=== PATIENT | female | born 1965 ===

== ENCOUNTER 2019-01-20 13:48 | Day surgery (SDC) | payer OTHER ==
[2019-01-20] MEDS ORDERED: Depo-Medrol 40 MG/ML IM ONE (13:49)
[2019-01-20] MEDS ORDERED: Xylocaine-Mpf 2% 5 Ml Vial IJ ONE (13:49)
[2019-01-20] MEDS ORDERED: Lactated Ringers 1,000 ML IV ONE (14:33)
[2019-01-20] MEDS ORDERED: Ketamine HCl 50 MG/ML ONE ×2 (14:42→15:01)
[2019-01-20] MEDS ORDERED: DIPRIVAN 200 MG/20 ML IV ONE (14:42)
--- NOTE | 2019-01-20 16:16 | XRAY ---
Indication: Bilateral L3-L5 MBB. Intraoperative fluoroscopy was provided for 13 seconds. Single digital spot images submitted for interpretation demonstrates posterior needle tips projecting over the expected course of the left and right L3-L5 nerve roots. Correlate with intraoperative findings/report.
--- NOTE | 2019-01-20 16:19 | XRAY ---
13 seconds of fluoroscopy was used in surgery for bilateral L3-L4 and L4-L5 MBB.
== END 2019-01-20 15:21 | disposition home or self-care (01) ==
LOC: SDC-PAIN 13:48
PROVIDERS: ATTEND Psychiatry & Neurology Pain Medicine
DX: M47.816 Spondylosis without myelopathy or radiculopathy, lumbar region (principal); M06.9 Rheumatoid arthritis, unspecified; I48.91 Unspecified atrial fibrillation
CPT/HCPCS: 64493; 64494; 72020; 77002; 84703; J1030; J2704

== ENCOUNTER 2019-06-30 12:28 | Day surgery (SDC) | payer OTHER ==
[2019-06-30] MEDS ORDERED: Depo-Medrol 40 MG/ML IM ONE (12:29)
[2019-06-30] MEDS ORDERED: Marcaine 0.5% SDV 10 ML IJ ONE (12:29)
[2019-06-30] MEDS ORDERED: Ketamine HCl 50 MG/ML ONE (13:41)
[2019-06-30] MEDS ORDERED: DIPRIVAN 200 MG/20 ML IV ONE (13:41)
[2019-06-30] MEDS ORDERED: Lactated Ringers 1,000 ML IV ONE (14:29)
--- NOTE | 2019-06-30 14:46 | XRAY ---
11 seconds fluoroscopy time in surgery for bilateral L3-L5 MBB.
--- NOTE | 2019-06-30 14:46 | XRAY ---
Indication: Bilateral L3-L5 MBB. Intraoperative fluoroscopy was provided for 11 seconds. Single digital spot image submitted for interpretation demonstrates posterior needle tips projecting over the expected course of the left and right L3-L5 nerve roots. Correlate with intraoperative findings/report.
== END 2019-06-30 14:05 | disposition home or self-care (01) ==
LOC: SDC-PAIN 12:28
PROVIDERS: ATTEND Psychiatry & Neurology Pain Medicine
DX: M47.816 Spondylosis without myelopathy or radiculopathy, lumbar region (principal); M06.9 Rheumatoid arthritis, unspecified; I48.91 Unspecified atrial fibrillation; Z79.899 Other long term (current) drug therapy
CPT/HCPCS: 64494; 64495; 72020; 77002; 84703; J1030; J2704

== ENCOUNTER 2020-01-26 11:27 | Day surgery (SDC) | payer OTHER ==
[~2020-01-26 11:27] MED LIST: DIPRIVAN 200 MG/20 ML IV ONE; Ketamine HCl 50 MG/ML ONE
[2020-01-26] MEDS ORDERED: Marcaine 0.5% SDV 10 ML IJ ONE (11:28)
[2020-01-26] MEDS ORDERED: Depo-Medrol 40 MG/ML IM ONE (11:28)
--- NOTE | 2020-01-26 14:18 | XRAY ---
Indication: Left SI joint injection. Intraoperative fluoroscopy was provided for 12 seconds. 2 digital spot images submitted for interpretation demonstrates posterior needle tip projecting over the inferior left SI joint. Correlate with intraoperative findings/report.
--- NOTE | 2020-01-26 14:32 | XRAY ---
Indication: Right bursa injection. Intraoperative fluoroscopy was provided for 8 seconds. Single digital spot image obtained prone demonstrates needle tip just lateral to the right greater trochanter. Small amount of contrast injected for needle tip placement. Correlate with intraoperative findings/report.
--- NOTE | 2020-01-26 15:34 | XRAY ---
Indication: Left bursa injection. Intraoperative fluoroscopy was provided for 11 seconds. Single digital spot image obtained prone demonstrates needle tip just lateral to the left greater trochanter. Small amount of contrast injected for needle tip placement. Correlate with intraoperative findings/report.
[2020-01-26] MEDS ORDERED: Lactated Ringers 1,000 ML IV ONE (16:36)
--- NOTE | 2020-01-26 16:38 | XRAY ---
11 seconds fluoroscopy time in surgery for left hip bursa injection.
--- NOTE | 2020-01-26 16:38 | XRAY ---
8 seconds fluoroscopy time in surgery for right hip bursa injection.
--- NOTE | 2020-01-26 16:38 | XRAY ---
12 seconds fluoroscopy time in surgery for left SI joint injection.
== END 2020-01-26 13:15 | disposition home or self-care (01) ==
LOC: SDC-PAIN 11:27
PROVIDERS: ATTEND Psychiatry & Neurology Pain Medicine
DX: M46.1 Sacroiliitis, not elsewhere classified (principal); M70.62 Trochanteric bursitis, left hip; M70.61 Trochanteric bursitis, right hip; M06.9 Rheumatoid arthritis, unspecified; I48.91 Unspecified atrial fibrillation; Z79.899 Other long term (current) drug therapy
CPT/HCPCS: 20610; 72020; 73501; 77002; 84703; G0260; 27096; J1030; J2704; Q9966

== ENCOUNTER 2020-11-29 13:30 | Day surgery (SDC) | payer OTHER ==
[2020-11-29] MEDS ORDERED: Lactated Ringers 1,000 ML IV ONE (16:06)
== END 2020-11-29 14:36 | disposition home or self-care (01) ==
LOC: SDC-PAIN 13:30
PROVIDERS: ATTEND Psychiatry & Neurology Pain Medicine
DX: Z53.09 Procedure and treatment not carried out because of other contraindication (principal)
CPT/HCPCS: 84703

== ENCOUNTER 2020-11-29 14:41 | Emergency (ER) | payer OTHER ==
[2020-11-29 15:51] LABS: Absolute Neutrophil Ct (ANC) 1.76 (1.4-6.9); BASOPHIL % 0.4 % (0.0-0.4); Basophil (Absolute #) 0.02 (0-0.4); Eosinophil % 3.5 % (0.00-5.0); Eosinophil (Absolute #) 0.17 (0-0.5); Hematocrit 39.2 % (35-47); Hemoglobin 12.5 gm/dl (12.0-16.0); Lymphocyte (Absolute #) 2.49 (1.0-4.6); Lymphocytes % 51.6 % (24.0-44.0); Mean Cell Volume 90.5 fl (78-100); Mean Corpuscular Hemoglobin 28.9 pg (26-32); Mean Corpuscular Hgb Concent. 31.9 g/dl (32-36); Mean Platelet Volume 11.5 fl (7.5-11.0); Monocyte (Absolute #) 0.39 (0.0-1.3); Monocytes % 8.1 % (0.0-12.0); Neutrophil % 36.4 % (36.0-66.0); Platelet Count 162 K/mm3 (150-450); Red Blood Count 4.33 M/mm3 (4.1-5.4); Red Cell Distribution Width 13.1 % (11.5-14.0); White Blood Count 4.8 K/mm3 (4.0-10.5)
[2020-11-29 16:13] LABS: ALBUMIN 4.2 g/dL (3.5-5.0); ALKALINE PHOSPHATASE 65 U/L (38-126); ANION GAP 11.1 MEQ/L (5-15); BLOOD UREA NITROGEN 10 mg/dL (7-17); CHLORIDE 105 mmol/L (98-107); Calcium 9.5 mg/dL (8.4-10.2); Carbon Dioxide 26 mmol/L (22-30); Creatinine 1 0.43 mg/dL (0.52-1.04); EST GLOMERULAR FILTRATION RATE > 60.0 ML/MIN; Glucose 96 mg/dL (74-106); MAGNESIUM 1.7 mg/dL (1.6-2.3); NT PRO BNP 45.3 pg/mL (0-900); SGOT/AST 72 U/L (14-36); SGPT/ALT 81 U/L (0-35); SODIUM 138 mmol/L (137-145); Total Protein 7.7 g/dL (6.3-8.2)
--- NOTE | 2020-11-29 16:19 | XRAY ---
Indication: Left chest pain. Comparison: None Portable chest demonstrates normal heart, lungs, and bony thorax.
[2020-11-29 17:04] LABS: Appearance CLEAR (CLEAR); Bilirubin NEGATIVE (NEGATIVE); Blood NEGATIVE Ery/ul (0-5); Glucose NEGATIVE (NEGATIVE); Ketones NEGATIVE (NEGATIVE); Leukocyte Esterase NEGATIVE (NEGATIVE); Mucus SLIGHT /HPF (NEGATIVE); Nitrite NEGATIVE (NEGATIVE); Protein,Urine Dip NEGATIVE (Negative); Specific Gravity 1.023 (1.005-1.025); Urobilinogen NEGATIVE mg/dL (0-1); WBC 0-2 /HPF (0-5)
--- NOTE | 2020-11-29 17:47 | ERPHSYRPT ---
- History of Present Illness Patient Subjective Stated Complaint: Pt states that for the past week she has had chest pain off and on and today she was going to get an injection for her chronic back pain when she had an episode of chest pain, pt sees Dr. Jacob for A-fib Triage Nursing Assessment: Pt brought over to the ER by out patient surgery due to having chest pain, pt was unable to get her injections, vitals wnl, rates pain during episodes as 8/10, pulses normal, skin n/w/d, doesn't appear to be in any distress Allergies/Adverse Reactions: Penicillins Allergy (Verified 11/29/20 15:01) Home Medications: Cyclobenzaprine HCl 10 mg [Cyclobenzaprine 10 MG] 10 mg PO DAILY 11/29/20 [History] Hydrocodone Bit/Acetaminophen [Hydrocodon-Acetaminophn 10-325] 1 tab PO BID 11/29/20 [History] Levothyroxine Sodium [Synthroid] 175 mcg PO DAILY 11/29/20 [History] Loratadine 10 mg [Claritin 10 mg] 10 mg PO DAILY 11/29/20 [History] Metoprolol Tartrate 50 mg [Lopressor 50 MG] 50 mg PO BID 11/29/20 [History] Montelukast Sodium 10 mg [Singulair 10 MG] 10 mg PO DAILY 11/29/20 [History] Pravastatin Sodium 20 mg PO DAILY 11/29/20 [History] Verapamil HCl [Verapamil ER] 120 mg PO DAILY 11/29/20 [History] Zolpidem Tartrate 5 mg [Ambien 5 MG Tablet] 5 mg PO DAILY 11/29/20 [History] lisinopriL [Zestril] 2.5 mg PO DAILY 11/29/20 [History] Travel Risk - International Travel Have you traveled outside of the country in past 3 weeks: No - Coronavirus Screening Are you exhibiting any of the following symptoms?: No Close contact with a COVID-19 positive Pt in past 14-21 Days: No - Vaccine Status Have you recieved a Covid-19 vaccination: Yes [employer]: [employer] - Vaccination Dates Date of 2cond Vaccination (if applicable): 11/24/2020 - Past Medical History Pertinent Past Medical History: Yes Cardiac History: Arrhythmia Endocrine Medical History: Hypothyroidism Musculoskeletal History: Arthritis, Rheumatoid Arthritis - Past Surgical History Past Surgical History: Yes Female Surgical History: Section, Tubal Ligation Other Surgical History: ablasion, 3 deviated septums with reconstruction surgery, plantar fasciatis on hiwot feet - Social History Smoking Status: Former smoker Exposure to second hand smoke: No Drug Use: none Patient Lives Alone: No - Female History Hx Now: No - Nursing Vital Signs Nursing Vital Signs: Initial Vital Signs Temperature 98.2 F 11/29/20 14:42 Pulse Rate 68 11/29/20 14:42 Respiratory Rate 17 11/29/20 14:42 Blood Pressure 140/80 11/29/20 14:42 O2 Sat by Pulse Oximetry 96 11/29/20 14:42 Pain Scale Pain Intensity 0 - Physical Exam SpO2: 94 Ordered Tests: Active Orders 24 hr Category Date Time Status Hvac Field Service Technician STAT Care 11/29/20 15:05 Active EKG-ER Only STAT Care 11/29/20 15:04 Active IV Insertion STAT Care 11/29/20 15:04 Active Pulse Oximetry (ED) STAT Care 11/29/20 15:04 Active CHEST 1 VIEW (PORTABLE) Stat Exams 11/29/20 15:05 Completed CBC W DIFF Stat Lab 11/29/20 15:45 Completed CMP Stat Lab 11/29/20 15:45 Completed MAGNESIUM Stat Lab 11/29/20 15:45 Completed NT PRO BNP Stat Lab 11/29/20 15:45 Completed TROPONIN Q3H Lab 11/29/20 15:45 Completed TROPONIN Q3H Lab 11/29/20 18:15 Ordered TROPONIN Q3H Lab 11/29/20 21:15 Ordered TROPONIN Q3H Lab 11/30/20 00:15 Ordered TROPONIN Q3H Lab 11/30/20 03:15 Ordered UA W/RFX UR CULTURE Stat Lab 11/29/20 16:33 Completed Lab/Rad Data: Laboratory Result Diagrams 11/29/20 15:45 11/29/20 15:45 Laboratory Results 11/29/20 11/29/20 11/29/20 Range/Units 16:33 15:45 15:45 WBC (4.0-10.5) K/mm3 RBC (4.1-5.4) M/mm3 Hgb (12.0-16.0) gm/dl Hct (35-47) % MCV (78-100) fl MCH (26-32) pg MCHC (32-36) g/dl RDW (11.5-14.0) % Plt Count (150-450) K/mm3 MPV (7.5-11.0) fl Gran % (36.0-66.0) % Eos # (Auto) (0-0.5) Absolute Lymphs (auto) (1.0-4.6) Absolute Monos (auto) (0.0-1.3) Lymphocytes % (24.0-44.0) % Monocytes % (0.0-12.0) % Eosinophils % (0.00-5.0) % Basophils % (0.0-0.4) % Absolute Granulocytes (1.4-6.9) Basophils # (0-0.4) Sodium 138 (137-145) mmol/L Potassium 4.0 (3.5-5.1) mmol/L Chloride 105 (98-107) mmol/L Carbon Dioxide 26 (22-30) mmol/L Anion Gap 11.1 (5-15) MEQ/L BUN 10 (7-17) mg/dL Creatinine 0.43 L (0.52-1.04) mg/dL Estimated GFR > 60.0 ML/MIN Glucose 96 (74-106) mg/dL Calcium 9.5 (8.4-10.2) mg/dL Magnesium 1.7 (1.6-2.3) mg/dL Total Bilirubin 0.60 (0.2-1.3) mg/dL AST 72 H (14-36) U/L ALT 81 H (0-35) U/L Alkaline Phosphatase 65 (38-126) U/L Troponin I < 0.012 (0.000-0.034) ng/mL NT-Pro-B Natriuret Pep 45.3 (0-900) pg/mL Serum Total Protein 7.7 (6.3-8.2) g/dL Albumin 4.2 (3.5-5.0) g/dL Urine Color YELLOW (YELLOW) Urine Appearance CLEAR (CLEAR) Urine pH 5.0 (5-6) Ur Specific Universal 1.023 (1.005-1.025) Urine Protein NEGATIVE (Negative) Urine Ketones NEGATIVE (NEGATIVE) Urine Blood NEGATIVE (0-5) Barney/ul Urine Nitrite NEGATIVE (NEGATIVE) Urine Bilirubin NEGATIVE (NEGATIVE) Urine Urobilinogen NEGATIVE (0-1) mg/dL Ur Leukocyte Esterase NEGATIVE (NEGATIVE) Urine WBC (Auto) 0-2 (0-5) /HPF Urine RBC (Auto) NONE (0-2) /HPF U Epithel Cells (Auto) NONE (FEW) /HPF Urine Bacteria (Auto) NONE (NEGATIVE) /HPF Urine Mucus (Auto) SLIGHT (NEGATIVE) /HPF Urine Culture Reflexed NO (NO) Urine Glucose NEGATIVE (NEGATIVE) mg/dL 11/29/20 Range/Units 15:45 WBC 4.8 (4.0-10.5) K/mm3 RBC 4.33 (4.1-5.4) M/mm3 Hgb 12.5 (12.0-16.0) gm/dl Hct 39.2 (35-47) % MCV 90.5 (78-100) fl MCH 28.9 (26-32) pg MCHC 31.9 L (32-36) g/dl RDW 13.1 (11.5-14.0) % Plt Count 162 (150-450) K/mm3 MPV 11.5 H (7.5-11.0) fl Gran % 36.4 (36.0-66.0) % Eos # (Auto) 0.17 (0-0.5) Absolute Lymphs (auto) 2.49 (1.0-4.6) Absolute Monos (auto) 0.39 (0.0-1.3) Lymphocytes % 51.6 H (24.0-44.0) % Monocytes % 8.1 (0.0-12.0) % Eosinophils % 3.5 (0.00-5.0) % Basophils % 0.4 (0.0-0.4) % Absolute Granulocytes 1.76 (1.4-6.9) Basophils # 0.02 (0-0.4) Sodium (137-145) mmol/L Potassium (3.5-5.1) mmol/L Chloride (98-107) mmol/L Carbon Dioxide (22-30) mmol/L Anion Gap (5-15) MEQ/L BUN (7-17) mg/dL Creatinine (0.52-1.04) mg/dL Estimated GFR ML/MIN Glucose (74-106) mg/dL Calcium (8.4-10.2) mg/dL Magnesium (1.6-2.3) mg/dL Total Bilirubin (0.2-1.3) mg/dL AST (14-36) U/L ALT (0-35) U/L Alkaline Phosphatase (38-126) U/L Troponin I (0.000-0.034) ng/mL NT-Pro-B Natriuret Pep (0-900) pg/mL Serum Total Protein (6.3-8.2) g/dL Albumin (3.5-5.0) g/dL Urine Color (YELLOW) Urine Appearance (CLEAR) Urine pH (5-6) Ur Specific Universal (1.005-1.025) Urine Protein (Negative) Urine Ketones (NEGATIVE) Urine Blood (0-5) Barney/ul Urine Nitrite (NEGATIVE) Urine Bilirubin (NEGATIVE) Urine Urobilinogen (0-1) mg/dL Ur Leukocyte Esterase (NEGATIVE) Urine WBC (Auto) (0-5) /HPF Urine RBC (Auto) (0-2) /HPF U Epithel Cells (Auto) (FEW) /HPF Urine Bacteria (Auto) (NEGATIVE) /HPF Urine Mucus (Auto) (NEGATIVE) /HPF Urine Culture Reflexed (NO) Urine Glucose (NEGATIVE) mg/dL - Departure Referrals: KEVIN ADKINS [Primary Care Provider] -
--- NOTE | 2020-11-29 17:48 | ERPHSYRPT ---
- History of Present Illness Time Seen by Provider: 11/29/20 14:55 Historian: patient Exam Limitations: no limitations Patient Subjective Stated Complaint: Pt states that for the past week she has had chest pain off and on and today she was going to get an injection for her chronic back pain when she had an episode of chest pain, pt sees Dr. Jacob for A-fib Triage Nursing Assessment: Pt brought over to the ER by out patient surgery due to having chest pain, pt was unable to get her injections, vitals wnl, rates pain during episodes as 8/10, pulses normal, skin n/w/d, doesn't appear to be in any distress Physician History: Patient is a 55-year-old female presents to our ED for evaluation of chest pain. Patient was in the process of getting a regional block for back pain when she advised staff that she was experiencing chest pain. Patient states that she has been experiencing intermittent chest pain for approximately 3 weeks. Patient had another episode just prior to arrival while in preop holding area. Pain described as an ache that is at her left chest. Tends to radiate to her neck. No associated nausea vomiting or diaphoresis. Symptoms are mild to moderate in intensity. No specific worsening improving factors. Patient has history of hypercholesterolemia. She is currently not taking any medication for hypercholesterolemia. Patient's last cardiac stress test about 5 years ago. Patient's BMI is greater than 40. at bedside. They voiced no other complaints or concerns at this time. Timing/Duration: today Activities at Onset: none Location: substernal Chest Pain Radiation: neck Severity of Pain-Max: moderate Severity of Pain-Current: mild Modifying Factors: Improves With: nothing Associated Symptoms: denies symptoms Prior Chest Pain/Cardiac Workup: no prior chest pain Nitro Today/Relief: no nitro taken today Aspirin Treatment Today: no aspirin today Allergies/Adverse Reactions: Penicillins Allergy (Verified 11/29/20 15:01) Home Medications: Cyclobenzaprine HCl 10 mg [Cyclobenzaprine 10 MG] 10 mg PO DAILY 11/29/20 [History] Hydrocodone Bit/Acetaminophen [Hydrocodon-Acetaminophn 10-325] 1 tab PO BID 11/29/20 [History] Levothyroxine Sodium [Synthroid] 175 mcg PO DAILY 11/29/20 [History] Loratadine 10 mg [Claritin 10 mg] 10 mg PO DAILY 11/29/20 [History] Metoprolol Tartrate 50 mg [Lopressor 50 MG] 50 mg PO BID 11/29/20 [History] Montelukast Sodium 10 mg [Singulair 10 MG] 10 mg PO DAILY 11/29/20 [History] Pravastatin Sodium 20 mg PO DAILY 11/29/20 [History] Verapamil HCl [Verapamil ER] 120 mg PO DAILY 11/29/20 [History] Zolpidem Tartrate 5 mg [Ambien 5 MG Tablet] 5 mg PO DAILY 11/29/20 [History] lisinopriL [Zestril] 2.5 mg PO DAILY 11/29/20 [History] Travel Risk - International Travel Have you traveled outside of the country in past 3 weeks: No - Coronavirus Screening Are you exhibiting any of the following symptoms?: No Close contact with a COVID-19 positive Pt in past 14-21 Days: No - Vaccine Status Have you recieved a Covid-19 vaccination: Yes [employer]: [employer] - Vaccination Dates Date of 2cond Vaccination (if applicable): 11/24/2020 - Review of Systems Constitutional: No Symptoms, No Fever, No Chills Eyes: No Symptoms Ears, Nose, & Throat: No Symptoms Respiratory: No Symptoms, No Cough, No Dyspnea Cardiac: No Symptoms, No Chest Pain, No Edema, No Syncope Abdominal/Gastrointestinal: No Symptoms, No Abdominal Pain, No Nausea, No Vomiting, No Diarrhea Genitourinary Symptoms: No Symptoms, No Dysuria Musculoskeletal: No Symptoms, No Back Pain, No Neck Pain Skin: No Symptoms, No Rash Neurological: No Symptoms, No Dizziness, No Focal Weakness, No Sensory Changes Psychological: No Symptoms Endocrine: No Symptoms Hematologic/Lymphatic: No Symptoms Immunological/Allergic: No Symptoms All Other Systems: Reviewed and Negative - Past Medical History Pertinent Past Medical History: Yes Cardiac History: Arrhythmia Endocrine Medical History: Hypothyroidism Musculoskeletal History: Arthritis, Rheumatoid Arthritis - Past Surgical History Past Surgical History: Yes Female Surgical History: Section, Tubal Ligation Other Surgical History: ablasion, 3 deviated septums with reconstruction surgery, plantar fasciatis on hiwot feet - Social History Smoking Status: Former smoker Exposure to second hand smoke: No Drug Use: none Patient Lives Alone: No - Female History Hx Now: No - Nursing Vital Signs Nursing Vital Signs: Initial Vital Signs Temperature 98.2 F 11/29/20 14:42 Pulse Rate 68 11/29/20 14:42 Respiratory Rate 17 11/29/20 14:42 Blood Pressure 140/80 11/29/20 14:42 O2 Sat by Pulse Oximetry 96 11/29/20 14:42 Pain Scale Pain Intensity 0 - Physical Exam General Appearance: no apparent distress, alert Eye Exam: PERRL/EOMI, eyes nml inspection Ears, Nose, Throat Exam: normal ENT inspection, moist mucous membranes Neck Exam: normal inspection, non-tender, supple, full range of motion Respiratory Exam: normal breath sounds, lungs clear, No respiratory distress Cardiovascular Exam: regular rate/rhythm, normal heart sounds Gastrointestinal/Abdomen Exam: soft, No tenderness, No mass Back Exam: normal inspection, No CVA tenderness, No vertebral tenderness Extremity Exam: normal inspection, normal range of motion Neurologic Exam: alert, oriented x 3, cooperative, normal mood/affect, sensation nml, No motor deficits Skin Exam: normal color, warm, dry Lymphatic Exam: No adenopathy SpO2 Interpretation: normal SpO2: 94 O2 Delivery: Room Air - Course Nursing assessment & vital signs reviewed: Yes EKG Interpreted by Me: RATE (66), Sinus Rhythm, NORMAL AXIS, NORMAL INTERVALS - Radiology Exams Chest X-ray Interpretation: Teleradiologist Report (Portable chest demonstrates normal heart lungs and bony thorax.) Ordered Tests: Active Orders 24 hr Category Date Time Status Party Demonstrator STAT Care 11/29/20 15:05 Active EKG-ER Only STAT Care 11/29/20 15:04 Active IV Insertion STAT Care 11/29/20 15:04 Active Pulse Oximetry (ED) STAT Care 11/29/20 15:04 Active CHEST 1 VIEW (PORTABLE) Stat Exams 11/29/20 15:05 Completed CBC W DIFF Stat Lab 11/29/20 15:45 Completed CMP Stat Lab 11/29/20 15:45 Completed MAGNESIUM Stat Lab 11/29/20 15:45 Completed NT PRO BNP Stat Lab 11/29/20 15:45 Completed TROPONIN Q3H Lab 11/29/20 15:45 Completed TROPONIN Q3H Lab 11/29/20 18:15 Completed TROPONIN Q3H Lab 11/29/20 21:15 Ordered TROPONIN Q3H Lab 11/30/20 00:15 Ordered TROPONIN Q3H Lab 11/30/20 03:15 Ordered UA W/RFX UR CULTURE Stat Lab 11/29/20 16:33 Completed Medication Summary Discontinued Medications Generic Name Dose Route Start Last Admin Trade Name Los PRN Reason Stop Dose Admin Aspirin 324 mg 11/29/20 18:11 11/29/20 18:22 Baby Aspirin 81 Mg Chew PO 11/29/20 18:12 324 mg STAT ONE Administration Aspirin Confirm 11/29/20 18:15 Baby Aspirin 81 Mg Chew Administered 11/29/20 18:16 Dose 324 mg .ROUTE .STK-MED ONE Nitroglycerin/Dextrose 250 mls @ 1.5 mls/hr 11/29/20 18:11 Ntg 0.2mg/Ml In D5w Glass IV 12/29/20 18:10 .Q24H PRN CHEST PAIN Protocol 5 MCG/MIN Nitroglycerin 1 gm 11/29/20 18:13 11/29/20 18:23 Nitro-Bid 2% Ud Packets TOP 11/29/20 18:14 1 gm STAT ONE Administration Nitroglycerin Confirm 11/29/20 18:15 Nitro-Bid 2% Ud Packets Administered 11/29/20 18:16 Dose 1 gm .ROUTE .STK-MED ONE Lab/Rad Data: Laboratory Result Diagrams 11/29/20 15:45 11/29/20 15:45 Laboratory Results 11/29/20 11/29/20 11/29/20 Range/Units 18:15 16:33 15:45 WBC (4.0-10.5) K/mm3 RBC (4.1-5.4) M/mm3 Hgb (12.0-16.0) gm/dl Hct (35-47) % MCV (78-100) fl MCH (26-32) pg MCHC (32-36) g/dl RDW (11.5-14.0) % Plt Count (150-450) K/mm3 MPV (7.5-11.0) fl Gran % (36.0-66.0) % Eos # (Auto) (0-0.5) Absolute Lymphs (auto) (1.0-4.6) Absolute Monos (auto) (0.0-1.3) Lymphocytes % (24.0-44.0) % Monocytes % (0.0-12.0) % Eosinophils % (0.00-5.0) % Basophils % (0.0-0.4) % Absolute Granulocytes (1.4-6.9) Basophils # (0-0.4) Sodium (137-145) mmol/L Potassium (3.5-5.1) mmol/L Chloride (98-107) mmol/L Carbon Dioxide (22-30) mmol/L Anion Gap (5-15) MEQ/L BUN (7-17) mg/dL Creatinine (0.52-1.04) mg/dL Estimated GFR ML/MIN Glucose (74-106) mg/dL Calcium (8.4-10.2) mg/dL Magnesium (1.6-2.3) mg/dL Total Bilirubin (0.2-1.3) mg/dL AST (14-36) U/L ALT (0-35) U/L Alkaline Phosphatase (38-126) U/L Troponin I < 0.012 < 0.012 (0.000-0.034) ng/mL NT-Pro-B Natriuret Pep (0-900) pg/mL Serum Total Protein (6.3-8.2) g/dL Albumin (3.5-5.0) g/dL Urine Color YELLOW (YELLOW) Urine Appearance CLEAR (CLEAR) Urine pH 5.0 (5-6) Ur Specific [place] 1.023 (1.005-1.025) Urine Protein NEGATIVE (Negative) Urine Ketones NEGATIVE (NEGATIVE) Urine Blood NEGATIVE (0-5) Barney/ul Urine Nitrite NEGATIVE (NEGATIVE) Urine Bilirubin NEGATIVE (NEGATIVE) Urine Urobilinogen NEGATIVE (0-1) mg/dL Ur Leukocyte Esterase NEGATIVE (NEGATIVE) Urine WBC (Auto) 0-2 (0-5) /HPF Urine RBC (Auto) NONE (0-2) /HPF U Epithel Cells (Auto) NONE (FEW) /HPF Urine Bacteria (Auto) NONE (NEGATIVE) /HPF Urine Mucus (Auto) SLIGHT (NEGATIVE) /HPF Urine Culture Reflexed NO (NO) Urine Glucose NEGATIVE (NEGATIVE) mg/dL 11/29/20 11/29/20 Range/Units 15:45 15:45 WBC 4.8 (4.0-10.5) K/mm3 RBC 4.33 (4.1-5.4) M/mm3 Hgb 12.5 (12.0-16.0) gm/dl Hct 39.2 (35-47) % MCV 90.5 (78-100) fl MCH 28.9 (26-32) pg MCHC 31.9 L (32-36) g/dl RDW 13.1 (11.5-14.0) % Plt Count 162 (150-450) K/mm3 MPV 11.5 H (7.5-11.0) fl Gran % 36.4 (36.0-66.0) % Eos # (Auto) 0.17 (0-0.5) Absolute Lymphs (auto) 2.49 (1.0-4.6) Absolute Monos (auto) 0.39 (0.0-1.3) Lymphocytes % 51.6 H (24.0-44.0) % Monocytes % 8.1 (0.0-12.0) % Eosinophils % 3.5 (0.00-5.0) % Basophils % 0.4 (0.0-0.4) % Absolute Granulocytes 1.76 (1.4-6.9) Basophils # 0.02 (0-0.4) Sodium 138 (137-145) mmol/L Potassium 4.0 (3.5-5.1) mmol/L Chloride 105 (98-107) mmol/L Carbon Dioxide 26 (22-30) mmol/L Anion Gap 11.1 (5-15) MEQ/L BUN 10 (7-17) mg/dL Creatinine 0.43 L (0.52-1.04) mg/dL Estimated GFR > 60.0 ML/MIN Glucose 96 (74-106) mg/dL Calcium 9.5 (8.4-10.2) mg/dL Magnesium 1.7 (1.6-2.3) mg/dL Total Bilirubin 0.60 (0.2-1.3) mg/dL AST 72 H (14-36) U/L ALT 81 H (0-35) U/L Alkaline Phosphatase 65 (38-126) U/L Troponin I (0.000-0.034) ng/mL NT-Pro-B Natriuret Pep 45.3 (0-900) pg/mL Serum Total Protein 7.7 (6.3-8.2) g/dL Albumin 4.2 (3.5-5.0) g/dL Urine Color (YELLOW) Urine Appearance (CLEAR) Urine pH (5-6) Ur Specific [place] (1.005-1.025) Urine Protein (Negative) Urine Ketones (NEGATIVE) Urine Blood (0-5) Barney/ul Urine Nitrite (NEGATIVE) Urine Bilirubin (NEGATIVE) Urine Urobilinogen (0-1) mg/dL Ur Leukocyte Esterase (NEGATIVE) Urine WBC (Auto) (0-5) /HPF Urine RBC (Auto) (0-2) /HPF U Epithel Cells (Auto) (FEW) /HPF Urine Bacteria (Auto) (NEGATIVE) /HPF Urine Mucus (Auto) (NEGATIVE) /HPF Urine Culture Reflexed (NO) Urine Glucose (NEGATIVE) mg/dL - Progress Progress: improved Air Movement: good Progress Note: Patient reassessed. No active chest pain. Patient received aspirin and Nitropaste. Preliminary work-up essentially negative. Chest x-ray negative. Initial troponin x2 -. EKG normal sinus rhythm. Patient lives in [place] and is requesting transfer to [facility]. Case discussed with Dr. Jones of [facility] who accepts transfer. Patient is aware that she will be in the emergency department at [facility] for prolonged period of time. 11/29/20 19:18 Blood Culture(s) Obtained: No Antibiotics given: No Counseled pt/family regarding: lab results, diagnosis, rad results - Departure Departure Disposition: Transfer Clinical Impression: ACS (acute coronary syndrome) Condition: Stable Critical Care Time: No Referrals: KEVIN ADKINS [Primary Care Provider] - Additional Instructions: Discharge/Care Plan RONNIE CARO was seen on 11/29/20 in the Emergency Room. The patient was counseled regarding Diagnosis,Lab results, Imaging studies, need for follow up and when to return to the Emergency Room. Prescriptions given: Discharge Note I have spoken with the patient and/or caregivers. I have explained the patient's condition, diagnosis and treatment plan based on the information available to me at this time. I have answered the patient's and/or caregiver's questions and addressed any concerns. The patient and/or caregivers have as good understanding of the patient's diagnosis, condition and treatment plan as can be expected at this point. The vital signs have been stable. The patient's condition is stable and appropriate for discharge from the emergency department. The patient will pursue further outpatient evaluation with the primary care physician or other designated or consulting physician as outlined in the discharge instructions. The patient and/or caregivers are agreeable to this plan of care and follow-up instructions have been explained in detail. The patient and/or caregivers have received these instruction. The patient/and or caregivers are aware that any significant change in condition or worsening of symptoms should prompt an immediate return to this or the closest emergency department or call 911.
[2020-11-29] MEDS ORDERED: BABY ASPIRIN 81 MG CHEW PO ONE (18:11)
[2020-11-29] MEDS ORDERED: Ntg 0.2MG/Ml in D5W GLASS*** 250 ML IV PRN (18:11)
[2020-11-29] MEDS ORDERED: NITRO-BID 2% UD PACKETS TOP ONE (18:13)
[2020-11-29] MEDS ORDERED: NITRO-BID 2% UD PACKETS ONE (18:15)
[2020-11-29] MEDS ORDERED: BABY ASPIRIN 81 MG CHEW ONE (18:15)
[2020-11-29 19:37] VITALS: BP 130/66; PULSE 71; O2SAT 97
== END 2020-11-29 20:09 | disposition short-term general hospital (02) ==
LOC: ED 14:41
DX: I21.4 Non-ST elevation (NSTEMI) myocardial infarction (principal); R07.9 Chest pain, unspecified; Z79.899 Other long term (current) drug therapy; E03.9 Hypothyroidism, unspecified; M06.9 Rheumatoid arthritis, unspecified
CPT/HCPCS: 36000; 36415; 71045; 80053; 81001; 83735; 83880; 84484; 85025; 93005; 93041; 94760; 99285; A9270-GY

== ENCOUNTER 2023-10-29 13:35 | Day surgery (SDC) | payer BC, OTHER ==
[2023-10-29] MEDS ORDERED: LIDOCAINE HCL 2% 100 MG/5 ML IJ ONE (13:36)
[2023-10-29] MEDS ORDERED: Lactated Ringers 1,000 ML IV ONE (15:10)
[2023-10-29] MEDS ORDERED: DIPRIVAN 200 MG/20 ML IV ONE (15:25)
[2023-10-29] MEDS ORDERED: Xylocaine-Mpf 2% 5 Ml Vial ONE (15:29)
--- NOTE | 2023-10-29 19:05 | XRAY ---
Indication: Bilateral L4-S1 MBB. Intraoperative fluoroscopy provided for 14 seconds. Single digital spot image submitted for interpretation demonstrates posterior needle tips projecting over expected left and right L4-S1 nerve roots. Correlate with intraoperative findings/report.
--- NOTE | 2023-10-30 08:49 | XRAY ---
14 seconds of fluoroscopy was used in surgery for a bilateral L4-S1 MBB.
== END 2023-10-29 16:00 | disposition home or self-care (01) ==
LOC: SDC-PAIN 13:35
PROVIDERS: ATTEND Psychiatry & Neurology Pain Medicine
DX: M47.816 Spondylosis without myelopathy or radiculopathy, lumbar region (principal)
CPT/HCPCS: 64493; 64494; 72020; 77002; J2704